=== PATIENT | male | born 1945 | race Caucasian/White ===

== ENCOUNTER 2019-05-31 14:32 | Emergency (ER) | payer MEDICARE, OTHER ==
[~2019-05-31] VITALS: Ht 177.8 cm; Wt 139.1 kg
[~2019-05-31 14:32] MED LIST: ALBU17AE26 IH; LEVO500T89 PO; LOSA25TA96 PO; LOSA50TA64 PO; PRED10TA14 PO
[2019-05-31 14:42] VITALS: BP 162/96
--- NOTE | 2019-05-31 15:59 | NUR ---
PT CALLED TO ER ROOM, NIL. ADMITTING STATED THAT PT JUST LEFT, FELT HE COULD NOT WAIT ANYLONGER AND NOT WANTING TO GET REALLY SICK. DR SILVERIO NOTIFIED, REQUESTED THAT PT BE CALLED. MULTIPLE CALLS MADE TO PT, LINE BUSY AND THEN NO ANSWER. DR SILVERIO NOTIFIED
== END 2019-05-31 16:02 | disposition left against medical advice (07) ==
LOC: ER 14:33
DX: R19.7 Diarrhea, unspecified (principal); Z53.21 Procedure and treatment not carried out due to patient leaving prior to being seen by health care provider